=== PATIENT | female | born 1990 | race Asian ===

== ENCOUNTER 2024-03-29 14:16 | Outpatient (CLI) | payer OTHER, SELFPAY ==
--- NOTE | ~2024-03-29 | US_ITS ---
EXAMINATION: US OB /maternal detail DATE: 03/29/2024 15:51 INDICATION: Encounter for supervision of normal . TECHNIQUE: Real-time ultrasound of the pelvis was performed. COMPARISON: None. FINDINGS: There is a single living fetus in vertex presentation. The placenta is posterior. heart rate i s 144 beats per minute (bpm). The amniotic fluid index is 10.6 cm, which is normal. The cervical ludivina th is 3.1 cm on transabdominal images, which is normal. The following biometric data were obtained: Biparietal diameter (BPD): 6.8 cm; head circumference (HC): 25.2 cm; abdominal circumference (AC): 23 .0 cm; femur length (FL): 4.6 cm. These measurements are discordant with low FL/BPD ratio. Estimated weight is 966 g +/- 145 g, which correlates with the 92nd percentile when 07/10/24 is used as estimated date of delivery. As single measurements, these parameters are each equal to the following estimated gestational ages: BPD: 27 weeks 2 days. HC: 27 weeks 3 days. AC: 27 weeks 3 days. FL: 25 weeks 3 days. estimated gestational age based solely on measurements from this exam is 26 weeks 6 days +/- 1 weeks 6 days. The cerebral ventricles, cerebellum, cisterna magna, lip, and spine are normal. The heart is normal. The diaphragm, stomach, kidneys, and bladder are normal. There are two umbilical arteries to yield a 3-vessel cord. The cord insertion is normal. IMPRESSION: 1. Single living fetus in vertex presentation. 2. estimated gestational age based solely on measurements from this exam is 26 weeks 6 days +/ - 1 weeks 6 days. 3. Discordant biometrics with low FL/BPD ratio. 4. Normal anatomic survey. Reviewed, dictated and finalized at location A. GAS ANALYST IMPRESSION: 1. Single living fetus in vertex presentation. 2. estimated gestational age based solely on measurements from this exam is 26 weeks 6 days +/- 1 weeks 6 days. 3. Discordant biometrics with low FL/BPD ratio. 4. Normal anatomic survey.
--- OUTSIDE RECORDS SUMMARY | 2024-03-29 14:21 | XMS_ITS | Referral Summary ---
Author Organization [facility] Address [address] [place] [address] Care Team Providers Care Inside Sales Engineer Name Role Phone Unavailable Primary Care Provider Unavailabl e Source Comments [facility],non-owned Affiliates and Associated Physician Practices is amultiple site organization consisting of ambulatory clinics and hospital sitesin [place], [place], [place] and [place]. This disclosure is being madepursuant to the Care Everywhere program and may not contain all information available regarding this patient. Last updated 17.[facility] Encounters Date Type Department Care Team Description 03/08/2024 Telephone [facility] - COAT HANGER SHAPER MACHINE OPERATOR [address] [facility] [address] [place] [address] Jessica Traylor MD Appointment (SEEKING NOB US & OV) from Last 3 Months Social History Tobacco Use Types Packs/Day Years Used Date Smoking Tobacco: Never Assessed Sex and Gender Information Value Date Recorded Sex Assigned at Not on file Gender Identity Not on file Sexual Orientation Not on file Plan of Treatment Not on file Bello Cottrellmary Personal/Family Self 1990
--- OUTSIDE RECORDS SUMMARY | 2024-03-29 14:21 | XMS_ITS | Clinical Summary ---
Author Organization [facility] Address [address] [place] [address] Care Team Providers Care Cnc Maintenance Technician Name Role Phone Unavailable Primary Care Provider Unavailabl e Source Comments [facility],non-owned Affiliates and Associated Physician Practices is amultiple site organization consisting of ambulatory clinics and hospital sitesin [place] and [place]. This disclosure is being madepursuant to the Care Everywhere program and may not contain all information available regarding this patient. Last updated 17.[facility] Encounters Date Type Department Care Team Description 03/08/2024 Telephone [facility] - SAP FUNCTIONAL ANALYST [address] [facility] [address] [place] [address] Jessica Traylor MD Appointment (SEEKING NOB US & OV) from Last 3 Months Social History Tobacco Use Types Packs/Day Years Used Date Smoking Tobacco: Never Assessed Sex and Gender Information Value Date Recorded Sex Assigned at Not on file Gender Identity Not on file Sexual Orientation Not on file Plan of Treatment Health Maintenance Due Date Last Done Comments PAP SMEAR 1990 HIV SCREENING 01/04/2007 HEPATITIS C SCREENING 12/31/2009 DTAP/TDAP/TD VACCINES (1 - Tdap) 01/04/2011 HEPATITIS B VACCINE (1 of 3 - 19+ 3-dose series) 01/04/2011 COVID-19 VACCINE ( - 2023-2 5 season) 2023 INFLUENZA VACCINE (#1) 2023 DEPRESSION SCREENING 02/16/2024 ZOSTER VACCINE (1 of 2) 01/04/2042 HIB VACCINE Aged Out No longer eligi ble based on patient's age to complete this topic HPV VACCINE Aged Out No longer eligi ble based on patient's age to complete this topic MENINGOCOCCAL (Group B) VACCINE Aged Out No longer eligible based on patient's age to complete this topic MENINGOCOCCAL VACCINE Aged Out No monserrat eliezer eligible based on patient's age to complete this topic PNEUMOCOCCAL VACCINE Aged Out No long er eligible based on patient's age to complete this topic Yeny Cottrell Personal/Family Self 1990
--- OUTSIDE RECORDS SUMMARY | 2024-03-29 14:21 | XMS_ITS | Patient Health Summary ---
Author Organization [facility] Address [address] [facility] [place] [address] Care Team Providers Care Pile Operator Name Role Phone Unavailable Primary Care Provider Unavailabl e Note from [facility],non-owned Affiliates and Associated Physician Practices is amultiple site organization consisting of ambulatory clinics and hospital sitesin [place], [place], [place] and [place]. This disclosure is being madepursuant to the Care Everywhere program and may not contain all information available regarding this patient. Last updated 17.[facility] Social History Tobacco Use Types Packs/Day Years Used Date Smoking Tobacco: Never Assessed Sex and Gender Information Value Date Recorded Sex Assigned at Not on file Gender Identity Not on file Sexual Orientation Not on file
--- OUTSIDE RECORDS SUMMARY | 2024-03-29 14:21 | XMS_ITS | Encounter Summary ---
Author Organization [facility] Address [address] [place] [address] [place] [address] Care Team Providers Care In Home Sales Consultant Name Role Phone Unavailable Primary Care Provider Unavailabl e Reason for Visit * Reason Onset Date Comments Appointment 03/08/2024 SEEKING NOB US & OV Encounter Details Date Type Department Care Team (Late st Contact Info) Description 03/08/2024 Telephone [facility] - BIRD TENDER [address] [facility] [address] [place] [address] Jessica Traylor MD [address] [facility] [address] [place] [address] Appointment (SEEKING NOB US & OV) Social History Tobacco Use Types Packs/Day Years Used Date Smoking Tobacco: Never Assessed Sex and Gender Information Value Date Recorded Sex Assigned at Not on file Gender Identity Not on file Sexual Orientation Not on file documented as of this encounter Miscellaneous Notes * Telephone Encounter - Jackeline Aiken - 03/16/2024 9:47 AM CST Called to schedule an appt for the PT. Spoke to the PT's to schedule an appt. He stated that the PT is seeking care elsewhere. No further needs at this time. STRIAL GAS PRODUCTION OPERATOR * Telephone Encounter - Rod Huntley - 03/08/2024 10:01 AM CST SEEKING NOB US & OV, LMP; AUG NOT SURE OF DETAILS, ORNELAS CALLING AND WILL DO THE TALKING FOR PT. PLS CALL TO ASSIST WITH SCHEDULING THANK YOU. STRIAL GAS PRODUCTION OPERATOR documented in this encounter Plan of Treatment Not on file documented as of this encounter Visit Diagnoses Not on filedocumented in this encounter
== END 2024-03-29 14:17 | disposition home or self-care (01) ==
PROVIDERS: Visit Provider Student in an Organized Health Care Education/Training Program
DX: Z34.90 Encounter for supervision of normal pregnancy, unspecified, unspecified trimester (principal); Z3A.00 Weeks of gestation of pregnancy not specified
CPT/HCPCS: 76805

== ENCOUNTER 2024-04-14 15:51 | Outpatient (CLI) | payer OTHER, SELFPAY ==
[2024-04-14 17:40] LABS: Hematocrit 36.4 % (37.0-47.0); Hemoglobin 12.4 g/dL (12.0-15.0); Mean Corpuscular HGB Conc 34.1 g/dl (32-36); Mean Corpuscular Hemoglobin 30.1 pg (26-34); Mean Corpuscular Volume 88.3 fl (80-100); Mean Platelet Volume 8.5 fl (7.4-10.4); Platelet Count Result 216 k/mm3 (150-375); Red Blood Count 4.12 M/mm3 (4.2-5.4); Red Cell Distribution Width 13.2 % (11.5-14.5); White Blood Count 10.9 K/mm3 (4.5-10.0)
[2024-04-14 18:01] LABS: Glucose 1 Hour PP 50gm Dose 92 mg/dL
[2024-04-14 18:43] LABS: HIV 1/2 Ab P24 Ag Result Negative (Negative)
[2024-04-14 19:14] LABS: Syphilis IgG/IgM Antibody Negative (Negative)
== END 2024-04-14 15:52 | disposition home or self-care (01) ==
LOC: ANHLAB 15:53
PROVIDERS: PCP Student in an Organized Health Care Education/Training Program; Visit Provider Student in an Organized Health Care Education/Training Program
DX: Z34.90 Encounter for supervision of normal pregnancy, unspecified, unspecified trimester (principal)
CPT/HCPCS: 36415; 82947; 85027; 86592; 86593; 86703; 86747; 86850; G0432

== ENCOUNTER 2024-05-06 10:01 | Outpatient (CLI) | payer OTHER, SELFPAY ==
--- NOTE | ~2024-05-06 | US_ITS ---
EXAMINATION: US OB follow up DATE: 05/06/2024 10:49 INDICATION: Encounter for supervision of normal TECHNIQUE: Real-time transabdominal obstetric ultrasound. FINDINGS: Ultrasound dated 03/29/2024 There is a single living fetus in vertex presentation. The placenta is posterior, maternal right wit hout placenta previa. Placental margin is 5.5 cm to the cervix. cardiac activity and movement is noted with a heart rate of 142 beats per minute. T he amniotic fluid volume is normal. ANKUR measures 10.2 cm. The following biometric data were obtained: BPD: 81mm corresponds to gestational age 32 weeks 5 days. Head circumference: 302mm corresponds to gestational age 33 weeks 4 days. Abdominal circumference: 279mm corresponds to gestational age 32 weeks 0 days. Femur length: 60mm corresponds to gestational age 31 weeks 0 days. Estimated weight: 1863 g +/- 2 79 ggrams. IMPRESSION: 1. Single living intrauterine in vertex presentation with an estimated gestational age of 32 weeks 2 days by inititial ultrasound. EDC by initial ultrasound is 06/29/2024. Appropriate interval growth. 2. Normal placenta. Reviewed, dictated and finalized at location B. IMPRESSION: 1. Single living intrauterine in vertex presentation with an estimat ed gestational age of 32 weeks 2 days by inititial ultrasound. EDC by initial u ltrasound is 06/29/2024. Appropriate interval growth. 2. Normal placenta.
--- OUTSIDE RECORDS SUMMARY | 2024-05-06 10:04 | XMS_ITS | Clinical Summary ---
Author Organization [facility] Address [address] [place] [address] Care Team Providers Care Cms Expert Name Role Phone Unavailable Primary Care Provider Unavailabl e Source Comments [facility],non-owned Affiliates and Associated Physician Practices is amultiple site organization consisting of ambulatory clinics and hospital sitesin [place], [place], [place] and [place]. This disclosure is being madepursuant to the Care Everywhere program and may not contain all information available regarding this patient. Last updated 17.[facility] Encounters Date Type Department Care Team Description 03/08/2024 Telephone [facility] - TERRITORY ACCOUNT REPRESENTATIVE [address] [facility] [address] [place] [address] Jessica Traylor MD Appointment (SEEKING [...] to complete this topic MENINGOCOCCAL (Group B) VACC INE SHARED DECISION-MAKING Aged Out No longer eligibl e based on patient's age to complete this topic MENINGOCOCCAL GROUPS A/C/Y/W VACCINE Aged Out No longer eligible b ased on patient's age to complete this topic PNEUMOCOCCAL VACCINE Aged Out No long er eligible based on patient's age to complete this topic Yeny Cottrell Personal/Family Self 1990
--- OUTSIDE RECORDS SUMMARY | 2024-05-06 10:04 | XMS_ITS | Encounter Summary ---
Author Organization [facility] Address [address] [place] [address] [place] [address] Care Team Providers Care Office Sweeper Name Role Phone Unavailable Primary Care Provider Unavailabl e Reason for Visit * Reason Onset Date Comments Appointment 03/08/2024 SEEKING NOB US & OV Encounter Details Date Type Department Care Team (Late st Contact Info) Description 03/08/2024 Telephone [facility] - PINKED EDGE SEWING MACHINE OPERATOR [address] [facility] [address] [place] [address] Jessica Traylor MD [address] [facility] [address] [place] [address] Appointment (SEEKING NOB US & [...] elsewhere. No further needs at this time. ERY RN * Telephone Encounter - Rod Huntley - 03/08/2024 10:01 AM CST SEEKING NOB US & OV, LMP; AUG NOT SURE OF DETAILS, ORNELAS CALLING AND WILL DO THE TALKING FOR PT. PLS CALL TO ASSIST WITH SCHEDULING THANK YOU. ERY RN documented in this encounter Plan of Treatment Not on file documented as of this encounter Visit Diagnoses Not on filedocumented in this encounter
== END 2024-05-06 10:02 | disposition home or self-care (01) ==
PROVIDERS: PCP Student in an Organized Health Care Education/Training Program; Visit Provider Student in an Organized Health Care Education/Training Program
DX: Z34.90 Encounter for supervision of normal pregnancy, unspecified, unspecified trimester (principal)
CPT/HCPCS: 76816

== ENCOUNTER 2024-06-15 14:25 | Outpatient (CLI) | payer OTHER, SELFPAY ==
--- NOTE | ~2024-06-15 | US_ITS ---
EXAMINATION: US OB follow up DATE: 06/15/2024 14:50 INDICATION: Assess growth and amniotic fluid index during third trimester TECHNIQUE: Real-time ultrasound of the pelvis was performed. The interpreting radiologist was not pre sent for the study. COMPARISON: 05/06/2024 FINDINGS: There is a single living fetus in vertex presentation. The placenta is posterior. heart rate i s 133 beats per minute (bpm). The amniotic fluid index is 10.5 cm, which is normal. (5th%-95%: 7.7-2 4.9 cm at 36 weeks estimated gestational age). The following biometric data were obtained: BPD: 9.6 cm -> 39 weeks 1 days Head circumference: 34.8 cm -> 40 weeks 3 days Abdominal circumference: 33.7 cm -> 37 weeks 4 days Femur length: 6.9 cm -> 35 weeks 4 days These measurements are concordant. Head circumference to abdominal circumference ratio: 1.03 (normal range 0.89-1.06). Estimated weight: 3248 g (+/-) 487 g or 7 lbs. 3 oz. (+/-) 1 lb. 1 oz. IMPRESSION: 1. Single living fetus in vertex presentation with heart rate of 133 bpm. 2. Normal amniotic fluid index of 10.5 cm. 3. Estimated weight is 82nd percentile by Hadlock criteria when 07/10/2024 is used as the estima abby date of delivery (TONY). Please correlate with clinical information or earlier ultrasounds for mos t accurate TONY. Reviewed, dictated and finalized at location A. IMPRESSION: 1. Single living fetus in vertex presentation with heart rate of 133 bpm. 2. Normal amniotic fluid index of 10.5 cm. 3. Estimated weight is 82nd percentile by Hadlock criteria when 07/10/2024 is used as the estimated date of delivery (TONY). Please correlate with clinica l information or earlier ultrasounds for most accurate TONY.
== END 2024-06-15 14:26 | disposition home or self-care (01) ==
LOC: MICIMG 14:26
PROVIDERS: PCP Student in an Organized Health Care Education/Training Program; Visit Provider Student in an Organized Health Care Education/Training Program
DX: Z34.83 Encounter for supervision of other normal pregnancy, third trimester (principal)
CPT/HCPCS: 76816

== ENCOUNTER 2024-07-04 10:10 | Outpatient (CLI) | payer OTHER, SELFPAY ==
--- NOTE | ~2024-07-04 | US_ITS ---
EXAMINATION: US OB follow up DATE: 07/04/2024 10:39 INDICATION: Encounter for supervision of normal during third trimester TECHNIQUE: Real-time ultrasound of the pelvis was performed. The interpreting radiologist was not pre sent for the study. COMPARISON: None. FINDINGS: There is a single living fetus in vertex presentation. The placenta is fundal and not low-lying. Fet al heart rate is 125 beats per minute (bpm). The amniotic fluid index is 18.8 cm, which is normal. ( 5th%-95%: 7.2-22.6 cm at 39 weeks estimated gestational age). The following biometric data were obtained: BPD: cm -> 9.739 weeks 4 days Head circumference: 34.8 cm -> 40 weeks 3 days Abdominal circumference: 34.8 cm -> 38 weeks 5 days Femur length: 7.6 cm -> 39 weeks 0 days These measurements are concordant. Head circumference to abdominal circumference ratio: 1.00 (normal range 0.88-1.05). Estimated weight: 3678 g (+/-) 552 g or 8 lbs. 2 oz. (+/-) 1 lb. 3 oz. IMPRESSION: 1. Single living fetus in vertex presentation with heart rate of 125 bpm. 2. Normal amniotic fluid index of 18.8 cm. 3. Estimated weight is 69th percentile by Hadlock criteria when 07/08/2024 is used as the estima abby date of delivery (TONY). Please correlate with clinical information or earlier ultrasounds for mos t accurate TONY. Reviewed, dictated and finalized at location A. IMPRESSION: 1. Single living fetus in vertex presentation with heart rate of 125 bpm. 2. Normal amniotic fluid index of 18.8 cm. 3. Estimated weight is 69th percentile by Hadlock criteria when 07/08/2024 is used as the estimated date of delivery (TONY). Please correlate with clinica l information or earlier ultrasounds for most accurate TONY.
== END 2024-07-04 10:11 | disposition home or self-care (01) ==
LOC: MICIMG 10:10
PROVIDERS: PCP Student in an Organized Health Care Education/Training Program; Visit Provider Student in an Organized Health Care Education/Training Program
DX: Z34.90 Encounter for supervision of normal pregnancy, unspecified, unspecified trimester (principal)
CPT/HCPCS: 76816

== ENCOUNTER 2024-07-09 09:33 | Inpatient (IN) | payer OTHER, SELFPAY ==
[2024-07-09] VITALS (164 sets, daily range): BP systolic 73–140; BP diastolic 36–103; PULSE 52–188; RESP 16–18; TEMP 36.8–37.2; O2SAT 88–100; BMI 25.7
--- OUTSIDE RECORDS SUMMARY | 2024-07-09 10:02 | XMS_ITS | Clinical Summary ---
Author Organization [facility] Address [address] [place] [address] Care Team Providers Care Pediatric Hospitalist Name Role Phone Unavailable Primary Care Provider Unavailabl e Source Comments [facility],non-owned Affiliates and Associated Physician Practices is amultiple site organization consisting of ambulatory clinics and hospital sitesin [place], [place], [place] and [place]. This disclosure is being madepursuant to the Care Everywhere program and may not contain all information available regarding this patient. Last updated 17.[facility] [place] Social History Tobacco Use Types Packs/Day Years Used Date Smoking Tobacco: Never Assessed Comments Unknown Sex and Gender Information Value Date Recorded Sex Assigned at Not on file Legal Sex Female 9:47 AM ARCHIVIST MILITARY HISTORY Gender Identity Not on file Sexual Orientation Not on file Plan of Treatment Health Maintenance Due Date Last Done Comments PAP SMEAR 1990 HIV SCREENING 01/04/2007 HEPATITIS C SCREENING 12/31/2009 DTAP/TDAP/TD VACCINES (1 - Tdap) 01/04/2011 HEPATITIS B VACCINE (1 of 3 - 19+ 3-dose series) 01/04/2011 COVID-19 VACCINE ( - 2023-2 5 season) 2023 DEPRESSION SCREENING 02/16/2024 INFLUENZA VACCINE (Season Ended) 2024 ZOSTER VACCINE (1 of 2) 01/04/2042 HIB [...] on patient's age to complete this [place] [address]
--- OUTSIDE RECORDS SUMMARY | 2024-07-09 10:02 | XMS_ITS | Encounter Summary ---
Author Organization [facility] Address [address] [place] [address] [place] [address] Care Team Providers Care Supervisor Ticket Sales Name Role Phone Unavailable Primary Care Provider Unavailabl e Reason for Visit * Reason Onset Date Comments Appointment 03/08/2024 SEEKING NOB US & OV Encounter Details Date Type Department Care Team (Late st Contact Info) Description 03/08/2024 Telephone [facility] - AUTO MECHANICS INSTRUCTOR [address] [facility] [address] [place] [address] Jessica Traylor MD [address] [facility] [address] [place] [address] Appointment (SEEKING NOB US & OV) Social History Tobacco Use Types Packs/Day Years Used Date Smoking Tobacco: Never Assessed Comments Unknown Sex and Gender Information Value Date Recorded Sex Assigned at Not on file Legal Sex Female 9:47 AM HISTORY TUTOR Gender Identity Not on file Sexual Orientation Not on file documented as of this encounter Miscellaneous Notes * Telephone Encounter - Jackeline Aiken - 03/16/2024 9:47 AM CST Called to schedule an appt for the PT. Spoke to the PT's to schedule an appt. He stated that the PT is seeking care elsewhere. No further needs at this time. ORY TUTOR * Telephone Encounter - Rod Huntley - 03/08/2024 10:01 AM CST SEEKING NOB US & OV, LMP; AUG NOT SURE OF DETAILS, ORNELAS CALLING AND WILL DO THE TALKING FOR PT. PLS CALL TO ASSIST WITH SCHEDULING THANK YOU. ORY TUTOR documented in this encounter Plan of Treatment Not on file documented as of this encounter Visit Diagnoses Not on filedocumented in this encounter
[2024-07-09 10:32] LABS: Basophils Percent Auto 0.2 % (0.2-1.2); Eosinophils Absolute Auto 0.1 K/mm3 (0-0.3); Eosinophils Percent Auto 0.5 % (0-4.4); Hematocrit 39.5 % (37.0-47.0); Hemoglobin 13.8 g/dL (12.0-15.0); Immature Granulocyte Absolute 0.06 K/mm3 (0.00-0.031); Immature Granulocyte Percent A 0.6 % (0-0.5); Lymphocytes Absolute Auto 1.42 K/mm3 (0.9-3.2); Lymphocytes Percent Auto 14.9 % (18.3-44.2); Mean Corpuscular HGB Conc 34.9 g/dl (32-36); Mean Corpuscular Hemoglobin 31.2 pg (26-34); Mean Corpuscular Volume 89.2 fl (80-100); Mean Platelet Volume 9.2 fl (7.4-10.4); Monocytes Absolute Auto 0.6 K/mm3 (0.1-0.6); Monocytes Percent Auto 6.2 % (2.6-8.5); Neutrophils Absolute Auto 7.4 K/mm3 (1.3-6.7); Neutrophils Percent Auto 77.6 % (45.5-73.1); Platelet Count Result 164 k/mm3 (150-375); Red Blood Count 4.43 M/mm3 (4.2-5.4); Red Cell Distribution Width 13.6 % (11.5-14.5); White Blood Count 9.6 K/mm3 (4.5-10.0)
--- NOTE | 2024-07-09 10:39 | WPDHPUPDATE1 ---
History and Physical Update Update Date/Time: 07/09/24 10:39 History and Physical has been reviewed, including an updated exam of the patient. There are NO changes in the patient's condition. Risks, benefits, and alternatives have been discussed and questions answered. Patient agrees to proceed with procedure.
--- NOTE | 2024-07-09 10:39 | WPDOBADMIT ---
Obstetrics - Admit Note Admission Note: record reviewed. No pertinent additions to the history and/or any subsequent changes in the physical findings that are not consistent with the expected course of the were found. Additions to the history and/or subsequent changes in the physical findings follow. None.
[2024-07-09] MEDS: LACTATED RINGERS 1,000 ML 125 ML IV CONT ×3 (10:56→20:42)
[2024-07-09 10:58] LABS: OBXCEM ROM Plus Negative (Negative)
[2024-07-09 11:10] LABS: Syphilis IgG/IgM Antibody Negative (Negative)
[2024-07-09 11:24] LABS: HIV 1/2 Ab P24 Ag Result Negative (Negative)
--- NOTE | 2024-07-09 11:35 | WPDANESEPP ---
Anes - Eval Pre Procedure Procedure: Labor epidural Date/Time: 07/09/24 11:35 Surgeon: Em Preop Diagnosis: Abdominal pain with contractions Pre Op Diagnosis: Contractions Patient Data Age: 34 Gender: F Height: 1.65 m Weight: 70 kg Last Vital Signs Pulse 71 07/09/24 11:30 BP 107/72 07/09/24 11:30 O2 Del Method Room Air 07/09/24 10:34 Allergies Allergy/AdvReac Type Severity Reaction Status Date / Time No Known Allergies Allergy Verified 07/05/24 14:50 Home Medications ?Medication ?Instructions ?Recorded ?Confirmed ?Type vits no.126-ferrous fum tablet PO 03/15/24 07/05/24 History 28 mg iron-folic acid 800 mcg tablet (Classic ) Laboratory Tests 07/09/24 07/09/24 10:05 10:56 WBC 9.6 K/mm3 (4.5-10.0) RBC 4.43 M/mm3 (4.2-5.4) Hgb 13.8 g/dL (12.0-15.0) Hct 39.5 % (37.0-47.0) MCV 89.2 fl (80-100) MCH 31.2 pg (26-34) MCHC 34.9 g/dl (32-36) RDW 13.6 % (11.5-14.5) Plt Count 164 k/mm3 (150-375) MPV 9.2 fl (7.4-10.4) Immature Gran % (Auto) 0.6 H % (0-0.5) Neut % (Auto) 77.6 H % (45.5-73.1) Lymph % (Auto) 14.9 L % (18.3-44.2) Edgar % (Auto) 6.2 % (2.6-8.5) Eos % (Auto) 0.5 % (0-4.4) Baso % (Auto) 0.2 % (0.2-1.2) Lymph # (Auto) 1.42 K/mm3 (0.9-3.2) Edgar # (Auto) 0.6 K/mm3 (0.1-0.6) Eos # (Auto) 0.1 K/mm3 (0-0.3) Baso # (Auto) 0.0 K/mm3 (0.0-0.1) Abs Immat Gran (auto) 0.06 H K/mm3 (0.00-0.031) Absolute Neuts (auto) 7.4 H K/mm3 (1.3-6.7) Absolute Nucleated RBC 0.000 K/mm3 (0.0-0.012) Nucleated RBC % 0.0 % (0.0-0.2) Membranes Rupture Rom plus negative (Negative) Syphilis IgG/IgM Ab Negative (Negative) HIV 1&2 Ab/P24 Ag 4thGn Negative (Negative) Blood Type B Positive Antibody Screen Negative : gestational age HCG: positive Patient hx anesthesia problems: none Family hx anesthesia problems: none Results Review: All pre-operative results and documents have been reviewed as part of the pre-operative evaluation. [facility] Past Medical History Medical History Headache Family History Family History Other Patient denies significant medical history Social History Social History Smoking status: Never smoker Alcohol intake: former Substance use: never Substance use type: does not use Do You Feel Safe in your Home?: Yes Lack of Transportation: YES Lack of Food: Never True Current Housing: I Have Housing Concerned About Future Housing: No Difficulty Paying Gas/Electric Bills: No Difficulty Paying for Meds: No Currently Unemployed: No Education: Bachelor's Degree Difficulty w/ Childcare or Family Care: No Living arrangements: with family Occupation/Education: unemployed Gender identity (if verbalized by the patient): Female Sexual Orientation (if Verbalized by the Patient): Straight or Heterosexual Spiritual care concerns: No Exam Day of Procedure 07/09/24 11:35 Patient weight: overweight Heart: regular rate and rhythm
[2024-07-09] MEDS: OXYTOCIN 30 UNITS/NS 500 ML 30 UNITS/500 ML BAG IV CONT (14:07)
[2024-07-09] MEDS: ONDANSETRON INJ 4 MG/2 ML VIAL IV PUSH (17:33)
--- NOTE | 2024-07-09 18:45 | S_PTH ---
PATIENT: Yeny Cottrell LOC: [facility] U#:[id number] AGE/SX: 34/F ROOM: 283 RE07/09/[address]: Louie Fair MD : 1990 BED: 00 DIS: 07/11/2024 SPEC #: [id number] RECD: 07/11/24 09:54 STATUS: YARITZA REQ #: [id number] ROXANE: 07/09/24 18:[address]: Louie Fair DEPT: [facility] Surgical RECD BY: Jacek Person ENTERED: 07/11/24 09:55 SP TYPE: Surgical OTHR DR: UNKNOWN,DOCTOR Pedro Strickland MD Tissues: A - Placenta Procedures: Hematoxylin and Eosin Stain Gross and Microscopic Level 5
--- NOTE | 2024-07-09 19:09 | P.PCNOB_ITS ---
OB - Vaginal Delivery Note Procedure Delivery date: 07/09/24 Delivery augmentation: Rupture of Membranes and Pitocin Delivery monitor: External FHT and External Uterine Route of delivery: Episiotomy description: None Laceration Description: Perineal - 3rd Degree Delivery repair: vicryl and chromic Specimen: Yes Quantitative Blood Loss (ml): 500 Anesthesia type: Epidural Disposition: Floor Complications: No immediate complications Narrative: Patient prepped and draped usual manner for this procedure. Maternal expulsive efforts readily delivered vertex, nuchal cord was reduced and rest of baby delivered. Cord clamped cut baby was passed off the field. Placenta delivered spontaneously without issue. Uterus well contracted. Bilateral sulcus tears were approximated using 2-0 chromic to approximate the vaginal tissue in a running interlocking manner. Partial third-degree laceration was noted and the rectal sphincter capsule was approximated 4 separate bites to approximate capsule and reapproximate the muscle as well. Of note there was just separation of the anterior portion of the capsule, not of significant amounts of muscle. Midline peritoneum was then approximated 2-0 chromic in running interlocking manner, deep tissue was approximated and subcuticular layer was used to approximate the perineum. There was no bleeding, no hematomas, at this point the procedure was considered terminated. [place] Baby Gestational Age by Date: 40 gender: Male presentation: vertex Placenta delivery description: Spontaneous Cord Vessel Description: 3 Vessels, Nuchal Cord and Reduced
[2024-07-09] MEDS: OXYTOCIN 30 UNITS/NS 500 ML 30 UNITS/500 ML BAG 125 UNITS IV CONT (20:42)
--- NOTE | 2024-07-09 22:20 | OBPPTRN ---
Patient transferred to post room #283 via wheelchair. Support person present. Oriented to unit, room, information board, rooming in, admission packet and security measures. Patient verbalizes understanding.
[2024-07-10] MEDS: BENZOCAINE 20% AER SPR (*SP) 56 GM CAN 1 SPRAY TOPICAL (00:37)
[2024-07-10] MEDS: IBUPROFEN 600 MG TABLET PO ×3 (00:37→15:07)
[2024-07-10] MEDS: WITCH HAZEL 40 PADS 1 PAD TOPICAL (00:37)
[2024-07-10 02:30] VITALS: BP 99/59; PULSE 81; RESP 18; TEMP 36.7; O2SAT 99
--- NOTE | 2024-07-10 03:48 | PC.NURSE ---
Order received to remove pt's vaginal packing 07/10 0700. Upon initial assessment on floor no vaginal packing present. Call made to 1st floor labor RN @ 0206 and labor RN has went home. Discussed with charge nurse Mason Clifford who stated vaginal packing was placed but that she was unaware if it had been removed prior to transport to room. Vaginal inspection done 0230 and no packing visualized. questioned pt if she was aware of vaginal packing and whether it had been removed and pt stated she was unaware vaginal packing was placed.
[2024-07-10 04:47] LABS: Hematocrit 27.3 % (37.0-47.0); Hemoglobin 9.4 g/dL (12.0-15.0)
[2024-07-10 07:30] VITALS: BP 101/64; PULSE 68; RESP 18; TEMP 37.3; O2SAT 98
--- NOTE | 2024-07-10 07:48 | PM.OBPNVD ---
OB - PN: Subj Subjective Date/time seen: 07/10/24 07:48 S: Diet ambulation tolerated. Fairly uncomfortable with movement due to laceration. Attempting to breastfeed. O: VSS afebrile Abdomen: Positive bowel sounds soft Labs: Noted A: Doing well with the expected discomfort P: Routine care. Likely discharge home tomorrow OB - PN: Obj Data Labs 07/10/24 04:14 Labs: Laboratory Results - last 24 hr 07/09/24 07/09/24 07/10/24 10:05 10:56 04:14 WBC 9.6 RBC 4.43 Hgb 13.8 9.4 L D Hct 39.5 27.3 L MCV 89.2 MCH 31.2 MCHC 34.9 RDW 13.6 Plt Count 164 MPV 9.2 Immature Gran % (Auto) 0.6 H Neut % (Auto) 77.6 H Lymph % (Auto) 14.9 L [place] % (Auto) 6.2 Eos % (Auto) 0.5 Baso % (Auto) 0.2 Lymph # (Auto) 1.42 [place] # (Auto) 0.6 Eos # (Auto) 0.1 Baso # (Auto) 0.0 Abs Immat Gran (auto) 0.06 H Absolute Neuts (auto) 7.4 H Absolute Nucleated RBC 0.000 Nucleated RBC % 0.0 Membranes Rupture Rom plus negative Syphilis IgG/IgM Ab Negative HIV 1&2 Ab/P24 Ag 4thGn Negative Blood Type B Positive Antibody Screen Negative OB - PN A/P Time Spent With Patient Time: Total time spent is greater than 50% in coordination of care (as documented) at patient's floor/unit and/or counseling patient:
--- NOTE | 2024-07-10 07:50 | PM.OBDSVD ---
DS: Admitting Diagnosis Discharge Date 07/11/2024 Admitting Diagnosis DS: Discharge Diagnosis Discharge Diagnosis (1) , delivered: Code(s): O80 - Encounter for full-term uncomplicated delivery Status: Acute OB - DS: Summary OB Procedures : None OB Procedures Intrapartum: Spontaneous Vag Delivery OB Procedures: : None Peripartum Data Laceration Description: Perineal - 3rd Degree Episiotomy description: None Time Spent with Patient Time attestation: Total time spent providing and/or coordinating discharge services: DS: Data Data Completed and Pending Labs on day of discharge: Labs from last 24 hours 07/10/24 07/09/24 07/09/24 04:14 10:56 10:05 WBC 9.6 RBC 4.43 Hgb 9.4 L D 13.8 Hct 27.3 L 39.5 MCV 89.2 MCH 31.2 MCHC 34.9 RDW 13.6 Plt Count 164 MPV 9.2 Immature Gran % (Auto) 0.6 H Neut % (Auto) 77.6 H Lymph % (Auto) 14.9 L [place] % (Auto) 6.2 Eos % (Auto) 0.5 Baso % (Auto) 0.2 Lymph # (Auto) 1.42 [place] # (Auto) 0.6 Eos # (Auto) 0.1 Baso # (Auto) 0.0 Abs Immat Gran (auto) 0.06 H Absolute Neuts (auto) 7.4 H Absolute Nucleated RBC 0.000 Nucleated RBC % 0.0 Membranes Rupture Rom plus negative Syphilis IgG/IgM Ab Negative HIV 1&2 Ab/P24 Ag 4thGn Negative Blood Type B Positive Antibody Screen Negative Discharge Plan Discharge Discharging Clinician: Loiue Fair Patient Disposition: Home Activity: no straining, no driving, follow weight bearing status and pelvic rest Diet: as tolerated Discharge Instructions: In addition to other meds, MiraLax b.i.d. Patient Instructions: Antibiotic Form Patient Language: Spanish Stand Alone Forms: General Discharge Information Follow-up/Referrals: Pedro Strickland MD [Physician] - 4 Weeks Discharge Medications: New ibuprofen 600 mg Tablet 600 mg PO Q6H PRN (Reason: Cramping) Qty: 30 0RF Continued Classic 28 mg iron- 800 mcg tablet PO Date of admission: 07/09/24 09:33 Primary Care Provider: UNKNOWN,DOCTOR Admitting Provider: Pedro Strickland Attending physician on admission: Pedro Strickland Condition: Stable
[2024-07-10] MEDS: POLYSACCHARIDE IRON COMPLEX 150 MG CAPSULE PO ×2 (08:19→16:28)
[2024-07-10] MEDS: ACETAMINOPHEN 325 MG TABLET 650 MG PO ×2 (08:20→15:07)
[2024-07-10] MEDS: MULTIVIT/MIN/PREN/FOL AC/IRON TABLET 1 TAB PO (08:20)
[2024-07-10] MEDS: DOCUSATE SODIUM 100 MG CAPSULE PO ×2 (08:21→16:28)
--- NOTE | 2024-07-10 11:15 | PC.NURSE ---
1115: Met with patient regarding needs. She states that isn't going well because she does not have milk coming out of her breasts. Educated on expected milk production immediately and reviewed that frequent stimulation is needed for a good milk supply. Since baby is feeding with the nipple shield and supplementing with formula, mom says that she is open to starting to pump today. She has a personal breast pump at home. Baby woke readily to feed and gave a good open mouth. Mom has trouble with positioning and we tried working on cross cradle hold. Baby did latch to the shield and sucked a few times but did not maintain a good latch or suckle consistently. We tried for a few minutes and then baby became agitated. Mom fed baby Enfamil from the bottle. Patient set up with a breast pump due to ineffective feeding. Mother was shown proper sizing (24mm) and placement of flanges, pump settings, and cleaning of pump parts. Recommended 15 minutes of pumping both breasts simultaneously. Patient is aware that pumping should not hurt. She is encouraged to use the highest comfortable suction setting, gradually increasing the level as she pumps. Patient provided with a basin for cleaning parts between uses. Breast milk storage guidelines discussed. Discussed use of expressed breast milk by placing drops of milk in baby?s mouth with a clean finger, bottle feeding, or mixing colostrum with a small volume of formula and feeding with a bottle.? Reviewed again with mom that it is normal not to get a lot of milk with pumping, but that we need to stimulate the breast so the body knows to make milk for baby. Primary RN updated.??
[2024-07-10 13:20] VITALS: BP 101/76; PULSE 82; RESP 16; TEMP 37.5; O2SAT 98
--- NOTE | 2024-07-10 13:36 | WPDANLDPN2 ---
Anes-Prog Note L&D Date/Time: 07/10/24 13:36 Comfortable throughout: labor and delivery Neuraxial method: epidural Epidural/Spinal procedure site: clean & non-tender Neuro status: Neuro function grossly intact. Cardiovascular status: normal Respiratory status: normal Airway patency: baseline Mental status: baseline Post-Op hydration status: normal Vital Signs: Last Vital Signs Temp 99.5 F 07/10/24 13:20 Pulse 82 07/10/24 13:20 Resp 16 07/10/24 13:20 BP 101/76 07/10/24 13:20 Pulse Ox 98 07/10/24 13:20 O2 Del Method Room Air 07/10/24 08:20 Pain score (VAS): 0 I/O: Intake & Output 07/09/24 07/10/24 07/10/24 23:59 07:59 15:59 Intake Total 1000 Output Total 75 500 Balance 925 -500 Post-procedural complaints: none Patient feedback: Patient satisfied with anesthetic care.
[2024-07-10 20:00] VITALS: BP 91/60; PULSE 76; RESP 18; TEMP 36.7; O2SAT 99
[2024-07-11] MEDS: ACETAMINOPHEN 325 MG TABLET 650 MG PO ×3 (01:21→16:38)
[2024-07-11] MEDS: IBUPROFEN 600 MG TABLET PO ×3 (01:22→16:39)
[2024-07-11 08:10] VITALS: BP 89/57; PULSE 54; RESP 18; TEMP 37.4; O2SAT 98
[2024-07-11] MEDS: MULTIVIT/MIN/PREN/FOL AC/IRON TABLET 1 TAB PO (08:26)
[2024-07-11] MEDS: DOCUSATE SODIUM 100 MG CAPSULE PO (08:26)
[2024-07-11] MEDS: POLYSACCHARIDE IRON COMPLEX 150 MG CAPSULE PO (08:26)
--- NOTE | 2024-07-11 12:28 | PM.OBDSVD ---
DS: Admitting Diagnosis Discharge Date 07/11/24 Admitting Diagnosis intrauterine at term DS: Discharge Diagnosis Discharge Diagnosis (1) Normal vaginal delivery: Code(s): O80 - Encounter for full-term uncomplicated delivery Status: Acute (2) Third degree perineal laceration during delivery: Code(s): O70.20 - Third degree perineal laceration during delivery, unspecified Status: Acute OB - DS: Summary OB Procedures : None OB Procedures Intrapartum: Spontaneous Vag Delivery OB Procedures: : None Peripartum Data Laceration Description: Perineal - 3rd Degree Episiotomy description: None Status at Discharge Functional status at discharge: independent ambulation Overall status at discharge: patient is back to baseline Time Spent with Patient Time attestation: Total time spent providing and/or coordinating discharge services: Time spent: Less than 30 minutes Exam Const: General: comfortable and no acute distress Resp: Effort & Inspection: normal respiratory effort Auscultation: clear to auscultation bilaterally Cardio: Rate: regular rate GI: GI Palp: Yes Soft to palpation Auscultation: normal bowel sounds Other: Fundus firm below umbilicus Psych: Appearance: grossly normal Mental Status: mental status grossly normal Affect: normal affect DS: Data Data Completed and Pending Pending studies at discharge: Pending at discharge 07/09/24 18:45 Surgical [PTH] Routine Discharge Plan Discharge Discharging Clinician: Louie Fair Patient Disposition: Home Activity: no straining, no driving, follow weight bearing status and pelvic rest Diet: as tolerated Discharge Instructions: In addition to other meds, MiraLax b.i.d. Education: Mom and Baby Guide Given to: Mother Follow-Up: Call your delivering provider's office for an appointment to be seen in: 4 Weeks Mom and baby should come to the [facility] for the follow-up appointment. Appointment Date/Time: July 12, 2024 at 10:00 am What to expect at your follow-up visit: Blood Pressure Check Physical Assessment Call [phone] if you are unable to keep your appointment time. BREAST CARE: * Wear a snug supportive bra. * For engorgement discomfort: Breast Feeding: * Apply warm moist washcloths * Express milk as needed to relieve engorgement * Wear loose clothing Bottle Feeding: * May apply ice packs * For sore nipples: * Identify correct latch-on * Apply warm moist washcloths before and after nursing * Air dry nipples after nursing * May apply Lansinoh cream to nipples ABDOMINAL INCISION: (if applicable) * Allow incision to air dry * Do NOT use lotions for powders on your incision * When showering, allow soap and water to run over the incision, but do not wash incision EPISIOTOMY/PERINEAL CARE: * Until bleeding stops, use your mesfin bottle after urinating * Change your pad frequently throughout the day * You may take sitz baths several times a day (fill your bathtub with warm water and soak for 20 minutes.) Do NOT bathe in the water * No tub baths until seen by your physician - You may shower ACTIVITY: * Rest as much as possible. * Do not exercise or lift anything heavier than your baby (such as laundry or other children.) * Avoid stairs or driving as much as possible. * Do not put anything into the vagina. No douching, tampons, or sexual activity until seen by physician. NOTIFY PHYSICIAN IF YOU HAVE ANY QUESTIONS OR IF ANY OF THE FOLLOWING SYMPTOMS OCCUR: * If your episiotomy or incision becomes red, swollen, or more painful than what you have experienced in the hospital. * If your vaginal bleeding becomes foul smelling. * If your vaginal bleeding becomes more heavy than a period or if your bleeding changes from pink to bright red. However, you may pass an occasional walnut-sized clot once or twice for the first week . * If you experience a sharp, shooting pain in you calves. * If you discover a hard, reddened area on your breast or if you experience flu-like symptoms. DIET: * Eat regular, well-balanced meals. * Drink plenty of fluids daily. If , drink to thirst. Patient Instructions: Vaginal Delivery (DC) Patient Language: Luxembourgish Stand Alone Forms: General Discharge Information Follow-up/Referrals: Pedro Strickland MD [Physician] - 4 Weeks Discharge Medications: New ibuprofen 600 mg Tablet 600 mg PO Q6H PRN (Reason: Cramping) Qty: 30 0RF Continued Classic 28 mg iron- 800 mcg tablet PO Date of admission: 07/09/24 09:33 Primary Care Provider: UNKNOWN,DOCTOR Admitting Provider: Pedro Strickland Attending physician on admission: Pedro Strickland Condition: Stable
--- NOTE | 2024-07-11 13:38 | PC.NURSE ---
Consulted with mother concerning needs and she shared her ability to independently latch infant with the nipple shield without pain, she is then using her breast pump and then feeding baby with formula. Encouraged mother to continue to use the breast pump consistently, at least 8 times in 24 hours. Mother is feeding appropriately for growth of infant and understands stimulating to eat if needed. has had appropriate feedings in the last 24 hours meets the outcomes for weight, output, blood sugar and jaundice at this time. Reinforced understanding of milk production, transition of milk, signs of adequate intake, transition of stool, prevention/relief of engorgement, plugged ducts, mastitis, responsive watching for feeding cues, the different methods of stimulating to breastfeed 1-3 hours after the start of the last feeding, community resources, and when to call a provider using the resource of the feeding sheet along with the mom and baby guide. Mother voiced understanding of the information shared, is confident to continue effectively her infant at home, when to call for assistance, denies any additional assistance or education at this time. Reported to the Primary RN.
[2024-07-12 10:46] VITALS: BP 106/79; PULSE 82; RESP 18; TEMP 36.6; O2SAT 100
== END 2024-07-11 17:00 | disposition home or self-care (01) | DRG 768 ==
LOC: ANHLDR 17:11 → ANHOB2 07-10 07:51 → ANHLDR 07-12 09:41
PROVIDERS: Admitting Provider Obstetrics & Gynecology; Visit Provider Obstetrics & Gynecology
DX: O77.0 Labor and delivery complicated by meconium in amniotic fluid (principal); Z37.0 Single live birth; O70.20 Third degree perineal laceration during delivery, unspecified; O69.1XX0 Labor and delivery complicated by cord around neck, with compression, not applicable or unspecified; Z3A.38 38 weeks gestation of pregnancy
CPT/HCPCS: 36415; 84112; 85014; 85018; 85025; 86593; 86703; 86850; 86900; 86901; 88307; A9270; G0432; J2405; J2590; J2795; J7120

== ENCOUNTER 2024-11-10 15:15 | Outpatient (CLI) | payer OTHER, SELFPAY ==
--- OUTSIDE RECORDS SUMMARY | 2024-11-10 15:19 | XMS_ITS | Encounter Summary ---
Author Organization [facility] Address [address] [address] Care Team Providers Care Wire Strander Name Role Phone Unavailable Primary Care Provider Unavailabl e Reason for Visit * Reason Onset Date Comments Appointment 03/08/2024 SEEKING NOB US & OV Encounter Details Date Type Department Care Team (Late st Contact Info) Description 03/08/2024 Telephone [facility] [address] [place] [address] Jessica Traylor MD [address] [place] [address] Appointment (SEEKING NOB US & OV) Social History Tobacco Use Types Packs/Day Years Used Date Smoking Tobacco: Never Assessed Comments Unknown Sex and Gender Information Value Date Recorded Sex Assigned at Not on file Legal Sex Female 9:47 AM TSO Gender Identity Not on file Sexual Orientation Not on file documented as of this encounter Miscellaneous Notes * Telephone Encounter - Jackeline Aiken - 03/16/2024 9:47 AM CST Called to schedule an appt for the PT. Spoke to the PT's to schedule an appt. He stated that the PT is seeking care elsewhere. No further needs at this time. * Telephone Encounter - Rod Huntley - 03/08/2024 10:01 AM CST SEEKING NOB US & OV, LMP; AUG NOT SURE OF DETAILS, ORNELAS CALLING AND WILL DO THE TALKING FOR PT. PLS CALL TO ASSIST WITH SCHEDULING THANK YOU. documented in this encounter Plan of Treatment Not on file documented as of this encounter Visit Diagnoses Not on filedocumented in this encounter
--- OUTSIDE RECORDS SUMMARY | 2024-11-10 15:19 | XMS_ITS | Clinical Summary ---
Author Organization [facility] Address [address] [address] Care Team Providers Care Electrical Design Engineer Name Role Phone Unavailable Primary Care Provider Unavailabl e Source Comments [facility],non-owned Affiliates and Associated Physician Practices is amultiple site organization consisting of ambulatory clinics and hospital sitesin [place], [place], [place] and [place]. This disclosure is being madepursuant to the Care Everywhere program and may not contain all information available regarding this patient. 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 Gender Identity Not on file Sexual Orientation Not on file Plan of Treatment Health Maintenance Due Date Last Done Comments HIV SCREENING 01/04/2007 HEPATITIS C SCREENING 12/31/2009 DTAP/TDAP/TD VACCINES (1 - Tdap) 01/04/2011 HEPATITIS B VACCINE (1 of 3 - 19+ 3-dose series) 01/04/2011 PAP SMEAR 01/04/2013 HPV VACCINE (1 - 3-dose SCDM series) 01/04/2019 DEPRESSION SCREENING 02/16/2024 COVID-19 VACCINE ( - 2023-2 5 season) 2024 INFLUENZA VACCINE (#1) 2024 ZOSTER VACCINE (1 of 2) 01/04/2042 [...] age to complete this topic Insurance [employer] SELF PAY NO INSURANCE Member Subscriber Plan / Payer (Ef fective for All Dates) Name:Fatoumata Cottrell Member ID:Not on file Relation to Subscriber:Not on file Name:FATOUMATA COTTRELL Subscriber ID:Not on file Address: [address] [place] [id number] Payer ID:Not on file Group ID:Not on file Type:Self Pay Address: [place], [place]
--- OUTSIDE RECORDS SUMMARY | 2024-11-10 15:19 | XMS_ITS ---
Author Organization Unknown ENCOUNTERS Encounter Performer Location Date Diagnosis Diagnosis Status Outpatient [facility] [address] [place] [address] [id number] Inpatient [facility] [address] [place] [address] [id number] JOVANNA Outpatient [facility] [address] [place] [address] [id number] JOVANNA Outpatient [facility] [address] [place] [address] [id number] JOVANNA Outpatient [facility] [address] [place] [address] [id number] JOVANNA *Note: Encounters from your own facility or health system may be excluded. Allergies, Adverse Reactions, Alerts Allergen Type Severity Identification Date Medications Name Date Quantity Days Supplied GPI Number
[2024-11-10 15:48] LABS: Hematocrit 42.0 % (37.0-47.0); Hemoglobin 14.2 g/dL (12.0-15.0); Immature Granulocyte Percent A 0.3 % (0-0.5); Lymphocytes Absolute Auto 2.57 K/mm3 (0.9-3.2); Mean Corpuscular HGB Conc 33.8 g/dl (32-36); Mean Corpuscular Hemoglobin 28.1 pg (26-34); Mean Corpuscular Volume 83.2 fl (80-100); Nucleated Red Blood Cells Absolute Auto 0.000 K/mm3 (0.0-0.012); Nucleated Red Blood Cells Perc 0.0 % (0.0-0.2); Platelet Count Result 201 k/mm3 (150-375); Red Blood Count 5.05 M/mm3 (4.2-5.4); White Blood Count 7.0 K/mm3 (4.5-10.0)
[2024-11-10 16:20] LABS: Beta HCG Quantitative < 2.39 mIU/ML
[2024-11-10 16:38] LABS: Thyroid Stimulating Hormone Reflex 1.400 uIU/mL (0.465-4.68)
== END 2024-11-10 15:16 | disposition home or self-care (01) ==
LOC: ANHLAB 15:16
PROVIDERS: Visit Provider Obstetrics & Gynecology
DX: N91.2 Amenorrhea, unspecified (principal)
CPT/HCPCS: 36415; 84146; 84443; 84702; 85025

== ENCOUNTER 2024-11-21 08:20 | Emergency (ER) | payer OTHER, SELFPAY ==
[2024-11-21 08:33] VITALS: BP 102/81; PULSE 66; RESP 16; TEMP 36.6; O2SAT 99
--- NOTE | 2024-11-21 08:56 | ED.WOUNDLAC ---
HPI - Wound/Laceration General Chief Complaint: Wound/Laceration Stated Complaint: PUNCTURE WOUND L HAND Time Seen by Provider: 11/21/24 08:45 Source: patient and RN notes reviewed Mode of arrival: ambulatory Limitations: no limitations History of Present Illness HPI narrative: 34-year-old female presents Express Care complaining of pressure in the left hand. Patient said last night approximately 12 hours ago she was using a knife to pick seed out of an avocado and she accidentally stabbed herself in the left palm. Patient denies any other injuries. Patient's tetanus is up today. Patient reports swelling to the area and staying at her hand feels tight. Patient denies any numbness, tingling, redness, swelling ,fevers, body aches, chills. Patient said she clean the wound last night and it has been using antiseptic soap on the wound. Related Data Home Medications ?Medication ?Instructions ?Recorded ?Confirmed ?Last Taken ?Type Saccharomyces boulardii 250 mg 250 mg PO BID 11/10/24 Unknown History capsule (Daily Probiotic (S. boulardii)) Allergies Allergy/AdvReac Type Severity Reaction Status Date / Time No Known Allergies Allergy Verified 11/21/24 08:33 Review of Systems Review of Systems: CONSTITUTIONAL: Denies fever, chills, or sweats. EYES: Denies visual changes, redness, or discharge. ENT: Denies rhinorrhea, congestion, sore throat, or otalgia. CARDIOVASCULAR: Denies chest pain, palpitations, or edema. RESPIRATORY: Denies cough or dyspnea. GASTROINTESTINAL: Denies abdominal pain, nausea, vomiting, or diarrhea. GENITOURINARY: Denies dysuria or hematuria. SKIN: Denies rash or itching. Positive for wound. MUSCULOSKELETAL: Denies back pain, joint pain, or myalgia. NEUROLOGIC: Denies headache, numbness, or weakness. PSYCHIATRIC: Denies anxiety or depression. All other systems reviewed are negative, except as documented in HPI. [facility] Past Medical History Medical History Headache Family History Family History Other Patient denies significant medical history Social History Social History (Reviewed 11/21/24 @ 09:00 by JV Moss Smoking status: Never smoker Second hand tobacco smoke exposure: No Alcohol intake: current Drinks per week: 1 Alcohol use details: socially Substance use: never Substance use type: does not use Do You Feel Safe in your Home?: Yes Lack of Transportation: YES Lack of Food: Never True Current Housing: I Have Housing Concerned About Future Housing: No Difficulty Paying Gas/Electric Bills: No Difficulty Paying for Meds: No Currently Unemployed: No Education: Bachelor's Degree Difficulty w/ Childcare or Family Care: No Living arrangements: with family Additional living arrangements comments: Occupation/Education: unemployed Gender identity (if verbalized by the patient): Female Sexual Orientation (if Verbalized by the Patient): Straight or Heterosexual Spiritual care concerns: No Comments At the time of my signature, I reviewed and agree with the nursing past medical, surgical, social, and family history. There is no relevant family history pertinent to the patient complaint. Exam Narrative: GENERAL: This is a well-nourished, well-developed adult, in no apparent distress. They are non ill-appearing, nontoxic appearing. HEAD: normocephalic, atraumatic. EYES: Sclera clear/white. Conjunctiva normal. Vision is grossly intact. Extraocular movements intact EARS: External ears normal, Hearing grossly intact. NOSE: External nose normal THROAT: Mucous membranes moist, NECK: Neck supple, CARDIOVASCULAR: Regular rate and rhythm RESPIRATORY: Respiratory rate normal, respiratory effort nonlabored, no respiratory distress SKIN: Left hand: Linear laceration to the palmar surface the left hand, laceration located in the middle of the palm measuring approximately 0.4 cm. Mild swelling around the wound. Wound is superficial. Laceration well approximated and closed. No erythema, no exudate ,mild tenderness to palpation to wound. No area of fluctuance, no induration. No bony tenderness. Sweatband Decorating Machine Operator strength 5/5. Patient able to wiggle her fingers. Normal finger to thumb opposition. Patient can make a fist, thumbs-up sign, stop sign, and okay sign. Normal range of motion. Capillary refill less than 2 seconds. Sensation intact. Neurovascular status intact distal injury. Left radial pulse 2 +and palpable. Radial, ulnar, median nerve distribution intact. NEURO: awake, alert, and oriented to person, place and time. There were no obvious focal neurologic abnormalities. EXTREMITIES: No joint tenderness, effusion, or edema noted. Course Course Emergency Course: Portions of this record may have been created with voice recognition software Level of Care: Express Care Visit Vital Signs Vital signs: Vital Signs Temperature 97.8 F 11/21/24 08:33 Pulse Rate 66 11/21/24 08:33 Respiratory Rate 16 11/21/24 08:33 Blood Pressure 102/81 11/21/24 08:33 Pulse Oximetry 99 11/21/24 08:33 Temperature 97.8 F 11/21/24 08:33 Pulse Rate 66 11/21/24 08:33 Respiratory Rate 16 11/21/24 08:33 Blood Pressure 102/81 11/21/24 08:33 Pulse Oximetry 99 11/21/24 08:33 Reviewed MDM - Wound/Laceration MDM Narrative Medical decision making narrative: Laceration appears superficial. Neurovascular status intact distal to injury. No evidence of nerve injury. Normal function hand. Laceration is closed and well approximated, no indication for wound closure. No evidence of infection. Patient's tetanus up-to-date. Discussed wound care and supportive therapy. Give patient hand specialist in the event she develops hand dysfunction. Discussed physical exam findings. Advised supportive measures and signs/symptoms to go to the ER. Pt is appropriate for outpt treatment and f/u. Differential Diagnosis Differential diagnosis: Likely laceration, abrasion and other (Puncture wound) Critical Care Time Critical Care Time Critical Care Time: No Discharge Plan Discharge Clinical Impression: Laceration of hand Patient Disposition: Home Condition: Stable Instructions: Laceration (ED), Acute Wounds (ED) Additional Instructions: Wash the wound daily with mild soap and water. Do not soak or scrub the wound. Do not use hydrogen peroxide. Avoid dirty water to the wound has healed completely. This includes but not limited to creeks, puddles, lakes, [place], toilet, oceans, dirty dish water, etc. Please keep the wound dry and covered with a non adherent dressing such as a Band-Aid. You may apply a petroleum jelly or Vaseline to the wound daily. Leave it open to air at night. Follow-up with PCP in 5-7 days. Please go to the ER if he develops worsening redness, swelling, pain, fevers, nausea, vomiting, body aches, chills, green/yellow drainage, numbness, tingling, or serious concerns. Please follow-up with hand specialist if you develop any dysfunction of your hand such as level vial setter problems, chronic numbness and tingling, or any other concerns. Patient Language: Frisian Prescriptions: No Action Saccharomyces boulardii [Daily Probiotic (S. boulardii)] 250 mg capsule 250 mg PO BID Follow-up/Referrals: Jocelyn Malhotra MD [Physician, Plastic Surgery] Referral Note: only if symptoms develop Leidy,Shannan Wyatt [place] [Primary Care Provider, Unknown] Time of Disposition: 08:55
== END 2024-11-21 08:59 | disposition home or self-care (01) ==
PROVIDERS: PCP Chiropractor
DX: S61.412A Laceration without foreign body of left hand, initial encounter (principal); W26.0XXA Contact with knife, initial encounter
CPT/HCPCS: 99212; G0463